=== PATIENT | female | born 1945 | race Caucasian/White ===

== ENCOUNTER → 2021-03-29 | Day surgery (SDC) | payer OTHER ==
[2021-03-24 14:07] LABS: BASOPHILS # (AUTO) 0.1 (0.0-0.1); BASOPHILS % 0.9 % (0.0-1.0); EOSINOPHILS # (AUTO) 0.2 (0.0-0.4); EOSINOPHILS % 2.4 % (0.0-6.0); HEMATOCRIT 46.9 % (34.2-44.1); HEMOGLOBIN 15.7 g/dL (12.0-16.0); LYMPHOCYTES # (AUTO) 2.4 (1.0-3.2); LYMPHOCYTES % 30.6 % (18.0-39.1); MEAN CORPUSCULAR HEMOGLOBIN 30.5 pg (28-32); MEAN CORPUSCULAR HGB CONC 33.5 g/dL (31-35); MEAN CORPUSCULAR VOLUME 91.2 fL (81-99); MONOCYTES # (AUTO) 0.7 (0.2-0.8); MONOCYTES % 8.3 % (4.4-11.3); NEUTROPHILS # (AUTO) 4.6 (2.1-6.9); NEUTROPHILS % 57.5 % (38.7-80.0); PLATELET COUNT 241 x10e3/uL (140-360); RED BLOOD COUNT 5.14 x10e6/uL (3.6-5.1)
[~2021-03-29] MED LIST: BALANCED SALT SOLN (OPTH) 15 ML BTL IO ONE; CYCLOPENTOLATE HCL 1% OPTH SOLN 2ML BTL ONE; EPINEPHRINE HCL 1:1000 1ML 1 MG/ML AMP ONE; LEVOTHYROXINE50 MCG PO; LIDOCAINE HCL-PF 4% 40 MG/1 ML 5ML AMP ONE; MOXIFLOXACIN HCL(OPTH) 3 ML BTL ONE; ONDANSETRON HCL INJ 2MG/ML 2ML 2 MG/ML VIAL ONE; PHENYLEPHRINE HCL 2 ML DROPS ONE; POVIDONE IODINE 5% (OPTH) 30 ML BTL ONE; PROMETHAZINE HCL (IM) 25 MG/ML VIAL IM ONE; TROPICAMIDE 1% OPTH SOLN 3ML ONE; ZETIA10 MG PO
[2021-03-29 08:37] VITALS: BP 152/82
== END | disposition home or self-care (01) ==
LOC: OR 05:35
PROVIDERS: ATTEND Ophthalmology
DX: H25.811 Combined forms of age-related cataract, right eye (principal); Z96.1 Presence of intraocular lens; E78.5 Hyperlipidemia, unspecified; E03.9 Hypothyroidism, unspecified; F41.9 Anxiety disorder, unspecified; Z91.048 Other nonmedicinal substance allergy status; Z88.6 Allergy status to analgesic agent; Z01.810 Encounter for preprocedural cardiovascular examination; Z01.812 Encounter for preprocedural laboratory examination; Z20.822 Contact with and (suspected) exposure to COVID-19
CPT/HCPCS: 36415; 85025; 93005; J0171; J2405; J2550; U0002; V2632

== ENCOUNTER → 2021-05-27 | Day surgery (SDC) | payer OTHER ==
[2021-05-25 13:25] LABS: BASOPHILS # (AUTO) 0.1 (0.0-0.1); BASOPHILS % 1.1 % (0.0-1.0); EOSINOPHILS # (AUTO) 0.2 (0.0-0.4); EOSINOPHILS % 2.8 % (0.0-6.0); HEMATOCRIT 42.9 % (34.2-44.1); HEMOGLOBIN 14.1 g/dL (12.0-16.0); LYMPHOCYTES % 39.9 % (18.0-39.1); MEAN CORPUSCULAR HEMOGLOBIN 30.2 pg (28-32); MEAN CORPUSCULAR HGB CONC 32.9 g/dL (31-35); MEAN CORPUSCULAR VOLUME 91.9 fL (81-99); MONOCYTES # (AUTO) 0.7 (0.2-0.8); MONOCYTES % 8.9 % (4.4-11.3); NEUTROPHILS # (AUTO) 3.5 (2.1-6.9); PLATELET COUNT 201 x10e3/uL (140-360); RED BLOOD COUNT 4.67 x10e6/uL (3.6-5.1); RED CELL DISTRIBUTION WIDTH 12.8 % (11.7-14.4)
[~2021-05-27] MED LIST changes: +FAMOTIDINE 20 MG/2 ML VIAL IV ONE; +METOCLOPRAMIDE HCL 10 MG/2ML VIAL ONE; +POVIDONE IODINE 0.05% 0.05 % ML PO ONE; -PROMETHAZINE HCL (IM) 25 MG/ML VIAL IM ONE; +SCOPOLAMINE 1.5 MG PATCH ONE; +SODIUM CHLORIDE 0.9% 50ML 50 ML ONE; -TROPICAMIDE 1% OPTH SOLN 3ML ONE; +TROPICAMIDE 1% OPTH SOLN 3ML OP ONE
[2021-05-27 13:50] VITALS: BP 138/89
== END | disposition home or self-care (01) ==
LOC: OR 09:58
PROVIDERS: ATTEND Ophthalmology
DX: H25.812 Combined forms of age-related cataract, left eye (principal); Z01.812 Encounter for preprocedural laboratory examination; Z20.822 Contact with and (suspected) exposure to COVID-19; E03.9 Hypothyroidism, unspecified; F41.9 Anxiety disorder, unspecified; E78.5 Hyperlipidemia, unspecified; Z88.5 Allergy status to narcotic agent
CPT/HCPCS: 36415; 85025; J0171; J2405; J2765; U0002; V2632